=== PATIENT | female | born 1935 | race Caucasian/White ===

== ENCOUNTER 2020-06-28 10:39 | Outpatient (CLI) | payer BC | END 2020-06-28 23:59 | disposition home or self-care (01) | LOC: MSC 10:39 | PROVIDERS: ATTEND Internal Medicine | DX: R60.9 Edema, unspecified (principal); Z95.4 Presence of other heart-valve replacement; Z95.0 Presence of cardiac pacemaker ==

== ENCOUNTER 2024-02-17 10:32 | Emergency (ER) | payer OTHER ==
[~2024-02-17] VITALS: Ht 144.8 cm; Wt 52.6 kg
[2024-02-17] MEDS ORDERED: ONDA4TAB11 PO (10:54)
[2024-02-17] MEDS ORDERED: ONDANSETRON 4 MG TAB.RAPDIS ONE (11:14)
[2024-02-17] MEDS: ONDANSETRON 4 MG TAB.RAPDIS SL ONE (11:16)
[2024-02-17 15:51] VITALS: BP 113/86; O2SAT 96
== END 2024-02-17 15:52 | disposition home or self-care (01) ==
LOC: ER 10:35
DX: R11.2 Nausea with vomiting, unspecified (principal); E03.9 Hypothyroidism, unspecified; E78.00 Pure hypercholesterolemia, unspecified; I50.9 Heart failure, unspecified; Z88.5 Allergy status to narcotic agent; Z87.19 Personal history of other diseases of the digestive system; Z87.39 Personal history of other diseases of the musculoskeletal system and connective tissue
CPT/HCPCS: 99285; Q0162